=== PATIENT | male | born 1950 ===

== ENCOUNTER → 2017-12-05 | Outpatient (CLI) | payer OTHER | END | disposition home or self-care (01) | LOC: TOM 12:21 | DX: N20.1 Calculus of ureter (principal) ==

== ENCOUNTER 2020-04-04 07:07 | Outpatient (CLI) | payer OTHER | END 2020-04-04 07:11 | disposition home or self-care (01) | LOC: TOM 07:07 | PROVIDERS: ATTEND Urology | DX: R31.0 Gross hematuria (principal) | CPT/HCPCS: 74178; Q9965 ==

== ENCOUNTER 2020-07-31 08:26 | Outpatient (CLI) | payer OTHER | END 2020-07-31 15:00 | disposition home or self-care (01) | LOC: PPH VACUNA 08:26 | PROVIDERS: ATTEND Emergency Medicine Pediatric Emergency Medicine | DX: Z23 Encounter for immunization (principal) ==

== ENCOUNTER 2020-08-21 22:01 | Outpatient (CLI) | payer OTHER | END 2020-08-21 23:50 | disposition home or self-care (01) | LOC: PPH VACUNA 22:01 | PROVIDERS: ATTEND Emergency Medicine Pediatric Emergency Medicine | DX: Z23 Encounter for immunization (principal) ==

== ENCOUNTER 2021-12-09 08:00 | Outpatient (CLI) | payer OTHER ==
[~2021-12-09 08:00] MED LIST: LEVOFLOXACIN750 MG PO
== END 2021-12-09 08:30 | disposition home or self-care (01) ==
LOC: PPH VACUNA 08:00
PROVIDERS: ATTEND Emergency Medicine Pediatric Emergency Medicine
DX: Z23 Encounter for immunization (principal)